=== PATIENT | male | born 1935 | race Hispanic/Latino ===

== ENCOUNTER 2017-01-01 07:44 | Day surgery (SDC) | payer MEDICARE ==
[2016-12-29 11:01] VITALS: BMI 24.3
[2017-01-01] MEDS ORDERED: Bupivacaine HCl 0.25% PF (10 ml) Inj ONE (09:29)
[2017-01-01] MEDS ORDERED: Lidocaine 1% Inj (20ml) ONE (09:30)
--- NOTE | 2017-01-01 11:05 | PCM.SURG1 ---
Surgeon's Initial Post Op Note - Surgeon's Notes Surgeon: Dr. Archuleta Public Policy Coordinator: PGY1, Zahraa PGY1, Rod OMS3 Pre-Operative Diagnosis: anterior chest wall mass Operative Findings: 5cm x 3cm Post-Operative Diagnosis: same Operation Performed: excision of chest wall mass Specimen/Specimens Removed: 5cm x 3cm anterior chest wall mass Estimated Blood Loss: EBL {In ML}: 5 Date of Surgery/Procedure: 01/01/17 Time of Surgery/Procedure: 10:30
[2017-01-01 12:27] VITALS: BP 170/69; PULSE 65; RESP 18; TEMP 97.8; O2SAT 97
--- NOTE | 2017-01-02 09:59 | OP ---
PROCEDURE DATE: 01/01/2017 PREOPERATIVE DIAGNOSIS: Anterior chest wall mass. POSTOPERATIVE DIAGNOSIS: Anterior chest wall mass. PROCEDURE: Excision of chest wall mass. SURGEON: Frank Archuleta MD PROFESSOR OF PATHOLOGY: Dr. Torres and Dr. Vital. DESCRIPTION OF PROCEDURE: With the patient in the supine position, the anterior chest was prepped and draped in the usual sterile manner. A 1.5 cm elevated, slightly ulcerated mass was noted in the midline overlying the sternum and an elliptical incision was marked and then infiltrated with 1% lidocaine. An elliptical incision was made taken down through the full thickness of skin and the skin containing the mass was sharply excised down to normal subcutaneous fat. The operative site was examined for hemostasis. Small bleeders were cauterized and a single vessel using base of the mass was suture and ligated with a 3-0 Vicryl suture. The incision was closed with few subcutaneous suture of 3-0 Vicryl and then 4-0 Monocryl subcuticular sutures and glue. The dry sterile dressing was applied. The patient tolerated the procedure well and transferred to the recovery room in stable condition. ESTIMATED BLOOD LOSS FOR THE PROCEDURE: 5 mL. Frank Archuleta MD
== END 2017-01-01 11:20 | disposition home or self-care (01) ==
LOC: C.SDS 07:44
PROVIDERS: ATTEND Specialist
DX: R22.2 Localized swelling, mass and lump, trunk (principal)